=== PATIENT | male | born 1940 | race Caucasian/White ===

== ENCOUNTER → 2017-02-20 | Outpatient (CLI) | payer OTHER ==
[~2017-02-20] MED LIST: AMLO2.5T PO; ASPI81TA82 PO; COZA100T PO; HYDR-3533 PO; PRAV80 PO; PROT40TA PO; TRAM100T19 PO
--- NOTE | 2017-02-26 08:18 | RSPPFT ---
DATE OF PROCEDURE: 02/20/17 COMMENTS: VOLUMES DYNAMIC: FVC and FEV1 normal. STATIC: TLC, RV and FRC normal. FLOWS: FEV1% and FEF 25-75 normal. DIFFUSION: Normal. FLOW VOLUME LOOP: Normal configuration. IMPRESSION: Normal pulmonary functions.
== END ==
LOC: PHRSP 08:47
PROVIDERS: ATTEND Internal Medicine
DX: R05 Cough (principal); J44.9 Chronic obstructive pulmonary disease, unspecified
CPT/HCPCS: 94060; 94620; 94726; 94729

== ENCOUNTER 2017-07-06 16:50 | Observation (INO) | payer OTHER ==
[~2017-07-06] VITALS: Ht 170.2 cm; Wt 73.0 kg
[2017-07-06 16:56] VITALS: BP 188/80; PULSE 56; RESP 17; TEMP 97.5
[2017-07-06] MEDS ORDERED: SODIUM CHLOR 0.9% 1000 ML INJ 1,000 ML IV ONE (16:58)
[2017-07-06 17:10] LABS: AUTOMATED NEUTROPHIL # 4.6 TH/MM3 (1.8-7.7); BASOPHIL # 0.1 TH/MM3 (0-0.2); BASOPHIL % 1.8 % (0.0-2.0); EOSINOPHIL # 0.3 TH/MM3 (0-0.4); EOSINOPHIL % 3.7 % (0.0-4.0); HEMATOCRIT 40.1 % (39.0-51.0); HEMO FLAGS DIFF FINAL; LYMPH % 29.1 % (9.0-44.0); LYMPHOCYTE # 2.3 TH/MM3 (1.0-4.8); MEAN CELL VOLUME 90.5 FL (80.0-100.0); MEAN CORPUSCULAR HEMOGLOBIN 30.6 PG (27.0-34.0); MEAN CORPUSCULAR HGB CONC 33.8 % (32.0-36.0); NEUT % 59.4 % (16.0-70.0); PLATELET COUNT 324 TH/MM3 (150-450); RED BLOOD COUNT 4.43 MIL/MM3 (4.50-5.90); WHITE BLOOD COUNT 7.8 TH/MM3 (4.0-11.0)
--- NOTE | 2017-07-06 17:11 | PD ---
HPI Chief Complaint: Neuro Symptoms/ Deficits Time Seen by Provider: 16:58 Travel History International Travel<30 days: No Contact w/Intl Traveler<30days: No Traveled to known affect area: No History of Present Illness HPI 77-year-old male presents with at 9:30 AM while he was playing tennis feeling unsteady. He states his noticed that his speech was off as well. He states he is not having any memory changes, weakness, numbness or other concurrent complaints. His states that she noticed he was walking unsteady and his speech was slurred when they went for a walk and so she brought him here to be evaluated. Patient states he feels worse when he tries to move around. He denies other modifying factors. He denies prior history of strokes. He states he takes a baby aspirin. PFSH Past Medical History Autoimmune Disease: No Blood Disorders: No Heart Rhythm Problems: No Cancer: No Cardiovascular Problems: Yes (HTN) High Cholesterol: Yes Chest Pain: Yes Congestive Heart Failure: No Diminished Hearing: No Endocrine: No Gastrointestinal Disorders: Yes (TURNER'S ESOPHAGUS) GERD: Yes Genitourinary: No Hepatitis: No Hiatal Hernia: Yes Hypertension: Yes Immune Disorder: No Implanted Vascular Access Dvce: No Musculoskeletal: No Neurologic: Yes Psychiatric: No Reproductive: No Respiratory: Yes (LUNG MASS) Myocardial Infarction: No Ulcer: No Past Surgical History AICD: No Appendectomy: Yes Cardiac Surgery: Yes (HEART CATH X 3) Ear Surgery: No Endocrine Surgery: No Eye Surgery: No Genitourinary Surgery: No Gynecologic Surgery: No Neurologic Surgery: No Oral Surgery: No Pacemaker: No Thoracic Surgery: No Other Surgery: Yes (left lower lobe resection secondary to cancer) Social History Alcohol Use: No Tobacco Use: No Substance Use: No Allergies-Medications (Allergen,Severity, Reaction): Coded Allergies: No Known Allergies (Unverified , 07/06/17) Reported Meds & Prescriptions Reported Meds & Active Scripts Active Reported D3 Maximum Strength (Cholecalciferol) 5,000 Unit Cap 1,000 Units PO DAILY Aspirin 81 Mg Chew 81 Mg CHEW DAILY Pantoprazole (Pantoprazole Sodium) 40 Mg Tab 40 Mg PO DAILY Pravastatin 80 Mg Tab 80 Mg PO DAILY Losartan (Losartan Potassium) 50 Mg Tab 50 Mg PO BID Amlodipine (Amlodipine Besylate) 2.5 Mg Tab 2.5 Mg PO BID Review of Systems Except as stated in HPI: all other systems reviewed are Neg Physical Exam Narrative GENERAL: Well-nourished, well-developed patient. SKIN: Warm and dry. HEAD: Normocephalic and atraumatic. EYES: No injection or drainage. ENT: No nasal drainage noted. NECK: Supple, trachea midline. CARDIOVASCULAR: Regular rate and rhythm RESPIRATORY: Breath sounds equal bilaterally. No accessory muscle use. GASTROINTESTINAL: Abdomen soft, non-tender, nondistended. EXTREMITIES: No edema.. NEUROLOGICAL: Awake and alert. Motor and sensory grossly within normal limits. Mild slurred speech noted, 5 out of 5 in all 4 extremities, mild lower facial droop noted, equal grasp bilaterally Data Data Last Documented VS Vital Signs Date Time Temp Pulse Resp B/P (MAP) Pulse Ox O2 Delivery O2 Flow Rate FiO2 07/06/17 17:41 58 17 161/73 (102) 97 Room Air 07/06/17 16:56 97.5 Orders Orders Nursing Bedside Swallow Assess .ONCE (07/06/17 16:58) Activity Bed Rest (07/06/17 16:58) Diet Npo (07/06/17 Dinner) Prothrombin Time / Inr (Pt) (07/06/17 16:58) Act Partial Throm Time (Ptt) (07/06/17 16:58) Complete Blood Count With Diff (07/06/17 16:58) Basic Metabolic Panel (Bmp) (07/06/17 16:58) Fibrinogen (07/06/17 16:58) Creatine Kinase (Cpk) (07/06/17 16:58) Troponin I (07/06/17 16:58) Ua Includes Microscopic (07/06/17 16:58) Type And Screen (07/06/17 16:58) Ct Brain W/O Iv Contrast(Rout) (07/06/17 ) Chest, Single Ap (07/06/17 ) Electrocardiogram (07/06/17 ) Sodium Chlor 0.9% 1000 Ml Inj (Ns 1000 M (07/06/17 16:58) Blood Glucose (07/06/17 16:58) Ecg Monitoring (07/06/17 16:58) Iv Access Insert/Monitor (07/06/17 16:58) NPO (07/06/17 16:58) Oximetry (07/06/17 16:58) Aspirin (Aspirin) (07/06/17 18:00) Admit Order (Ed Use Only) (07/06/17 17:54) Place In Observation (07/06/17 ) Code Status (07/06/17 17:54) Vital Signs (Adult) Q2HX12,Q4H (07/06/17 17:54) Nih Stroke Scale - Nihss .Daily (07/06/17 17:54) Neuro Checks Q2HX12,Q4H (07/06/17 17:54) Notify Dr: Other (07/06/17 17:54) Remove Urinary Catheter .ONCE (07/06/17 17:54) Case Management Consult (07/06/17 ) Activity Oob Ad Ingrid (07/06/17 17:54) Nursing Bedside Swallow Assess .ONCE (07/06/17 17:54) Scd Bilateral/Knee High MEG.QSHIFT (07/06/17 17:54) Hemoglobin (Hgb) A1c (07/06/17 17:54) Lipid Profile (07/07/17 06:00) Us Carotid Arteries Comp Bilat (07/06/17 ) Mra Brain W/O Contrast (Cow) (07/06/17 ) Mri Brain W/O Contrast (07/06/17 ) Echo 2d Comp With Doppler (07/06/17 ) ^ Hold Medication (07/06/17 17:54) Sodium Chloride 0.9% Flush (Ns Flush) (07/06/17 21:00) Sodium Chloride 0.9% Flush (Ns Flush) (07/06/17 18:00) Bedside Glucose MEG.CSUGAR (07/06/17 17:54) Analytical Data Scientist / Telemetry MEG.Q8H (07/06/17 17:54) Consult Stroke Navigator (07/06/17 ) Enoxaparin Inj (Lovenox Inj) (07/06/17 18:00) Nursing Bedside Swallow Assess .ONCE (07/06/17 17:54) Labs Laboratory Tests Test 07/06/17 17:00 07/06/17 17:36 White Blood Count 7.8 TH/MM3 Red Blood Count 4.43 MIL/MM3 Hemoglobin 13.5 GM/DL Hematocrit 40.1 % Mean Corpuscular Volume 90.5 FL Mean Corpuscular Hemoglobin 30.6 PG Mean Corpuscular Hemoglobin Concent 33.8 % Red Cell Distribution Width 12.0 % Platelet Count 324 TH/MM3 Mean Platelet Volume 6.7 FL Neutrophils (%) (Auto) 59.4 % Lymphocytes (%) (Auto) 29.1 % Monocytes (%) (Auto) 6.0 % Eosinophils (%) (Auto) 3.7 % Basophils (%) (Auto) 1.8 % Neutrophils # (Auto) 4.6 TH/MM3 Lymphocytes # (Auto) 2.3 TH/MM3 Monocytes # (Auto) 0.5 TH/MM3 Eosinophils # (Auto) 0.3 TH/MM3 Basophils # (Auto) 0.1 TH/MM3 CBC Comment DIFF FINAL Differential Comment Prothrombin Time 10.9 SEC Prothromb Time International Ratio 1.0 RATIO Activated Partial Thromboplast Time 28.5 SEC Blood Urea Nitrogen 14 MG/DL Creatinine 1.00 MG/DL Random Glucose 113 MG/DL Calcium Level 8.2 MG/DL Sodium Level 141 MEQ/L Potassium Level 4.1 MEQ/L Chloride Level 109 MEQ/L Carbon Dioxide Level 22.9 MEQ/L Anion Gap 9 MEQ/L Estimat Glomerular Filtration Rate 72 ML/MIN Total Creatine Kinase 205 U/L Troponin I LESS THAN 0.02 NG/ML Urine pH 7.0 Urine Protein NEG mg/dL Urine Glucose (UA) NEG mg/dL Urine Ketones NEG mg/dL Urine Occult Blood NEG Urine Nitrite NEG Urine Bilirubin NEG Urine Leukocyte Esterase NEG MDM Medical Decision Making Medical Screen Exam Complete: Yes Emergency Medical Condition: Yes Medical Record Reviewed: Yes (past history confirmed) Interpretation(s) CBC & BMP Diagram 07/06/17 17:00 Calcium Level 8.2 L Last [address] 07/06/17 0000 Signed Impressions: Service Date/Time: Thursday, July 06, 2017 17:11 - CONCLUSION: Normal examination. Moody Lacy MD Chest X-Ray 07/06/17 0000 Signed Impressions: Service Date/Time: Thursday, July 06, 2017 17:30 - CONCLUSION: 1. Minimal basilar atelectasis. Tortuous aorta. Moody Lacy MD EKG shows NSR, no ST elevation or depression, and no arrhythmias. No significant T-wave inversions. Differential Diagnosis Stroke, bleed, mass, TIA Narrative Course Will check blood work, CT brain and monitor Patient updated, dose with aspirin. Patient agrees to admission. Lengthy discussion with patient and about results Physician Communication Physician Communication dr corbett agrees to admit Diagnosis Primary Impression: Unstable gait Additional Impression: Slurred speech Admitting Information Admitting Physician Requests: Observation Mya De Dios MD Jul 06, 2017 17:11
[2017-07-06 17:26] LABS: APTT (PATIENT) 28.5 SEC (24.3-30.1); PROTHROMBIN TIME - PATIENT 10.9 SEC (9.8-11.6)
--- NOTE | 2017-07-06 17:34 | RADRPT ---
EXAM DATE/TIME: 07/06/2017 17:11 [facility] COMPARISON: No previous studies available for comparison. INDICATIONS : Slurred speech. RADIATION DOSE: 60.39 CTDIvol (mGy) MEDICAL HISTORY : Hypertension. Cardiovascular disease Gastroesophageal reflux disease.Lung mass, SURGICAL HISTORY : Appendectomy. Heart cath. ENCOUNTER: Initial ACUITY: 1 day PAIN SCALE: 0/10 LOCATION: cranial TECHNIQUE: Multiple contiguous axial images were obtained of the head. Using automated exposure control and adj ustment of the mA and/or kV according to patient size, radiation dose was kept as low as reasonably a chievable to obtain optimal diagnostic quality images. DICOM format image data is available electro nically for review and comparison. FINDINGS: CEREBRUM: The ventricles are normal for age. No evidence of midline shift, mass lesion, hemorrhage or acute in farction. No extra-axial fluid collections are seen. POSTERIOR FOSSA: The cerebellum and brainstem are intact. The 4th ventricle is midline. The cerebellopontine angle i s unremarkable. EXTRACRANIAL: The visualized portion of the orbits is intact. SKULL: The calvaria is intact. No evidence of skull fracture. CONCLUSION: Normal examination. Moody Lacy MD on July 06, 2017 at 17:28 Board Certified Radiologist. This report was verified electronically.
[2017-07-06] MEDS ORDERED: PRAV80TA2 PO (17:40)
[2017-07-06] MEDS ORDERED: CHOL1CAP14 PO (17:40)
[2017-07-06] MEDS ORDERED: AMLO2.5T PO (17:40)
[2017-07-06] MEDS ORDERED: LOSA50TA PO (17:40)
[2017-07-06] MEDS ORDERED: PANT40TA3 PO (17:40)
[2017-07-06] MEDS ORDERED: ASPI81CH CHEW (17:40)
[2017-07-06 17:41] VITALS: BP 161/73; PULSE 58; RESP 17; O2SAT 97
[2017-07-06 17:44] LABS: CHLORIDE 109 MEQ/L (98-107); SODIUM (NA) 141 MEQ/L (136-145)
[2017-07-06 17:48] LABS: ANION GAP 9 MEQ/L (5-15); BICARBONATE 22.9 MEQ/L (21.0-32.0); BLOOD UREA NITROGEN 14 MG/DL (7-18)
[2017-07-06 17:50] LABS: POTASSIUM 4.1 MEQ/L (3.5-5.1)
[2017-07-06 17:52] LABS: GLOMERULAR FILTRATION RATE 72 ML/MIN (>89)
[2017-07-06 17:55] LABS: CREATINE KINASE 205 U/L (39-308)
[2017-07-06] MEDS ORDERED: SODIUM CHLORIDE 0.9% FLUSH 5 ML FLUSH IV FLUSH PRN (18:00)
[2017-07-06] MEDS ORDERED: ASPIRIN 325 MG TAB PO ONE (18:00)
--- NOTE | 2017-07-06 18:03 | RADRPT ---
EXAM DATE/TIME: 07/06/2017 17:30 [facility] COMPARISON: No previous studies available for comparison. INDICATIONS : Palpitations. MEDICAL HISTORY : Hypertension. Cardiovascular disease. Gastroesophageal reflux disease. SURGICAL HISTORY : Appendectomy. Left lower lobe removal. Heart cath. ENCOUNTER: Initial ACUITY: 1 day PAIN SCORE: 0/10 LOCATION: Bilateral chest FINDINGS: A single view of the chest demonstrates minimal basilar atelectasis. No consolidation or effusion. To rtuous aorta. Heart size mildly enlarged. No pneumothorax. CONCLUSION: 1. Minimal basilar atelectasis. Tortuous aorta. Moody Lacy MD on July 06, 2017 at 17:59 Board Certified Radiologist. This report was verified electronically.
[2017-07-06 18:07] LABS: BLOOD, URINE NEG (NEG); GLUCOSE,URINE NEG (NEG); KETONE, URINE NEG (NEG); NITRITE,URINE NEG (NEG)
[2017-07-06 18:22] LABS: URINE COLOR STRAW (YELLW/STRAW)
[2017-07-06 18:23] LABS: SQUAMOUS EPITHELIAL CELL URINE 0-1 /hpf (0-5)
[2017-07-06] MEDS: ENOXAPARIN SODIUM 40 MG/0.4 ML SYRINGE SQ SCH (18:34)
[2017-07-06 19:00] VITALS: BP 169/76
--- NOTE | 2017-07-06 19:13 | HHI.HP ---
[facility] Service [facility] Primary Care Physician José Luis Carmona MD Admission Diagnosis slurred speech, unsteady gait Diagnoses: Chief Complaint: Poor balance and slurred speech Travel History International Travel<30 Days: No Contact w/Intl Traveler <30 Da: No Traveled to Known Affected Are: No History of Present Illness This patient is an extremely healthy 77-year-old male who plays tennis several times a week and rides 10 miles on his bicycle. He was playing tennis today and noted that he felt overwhelmingly weak and fatigued. He tried to ride his bike home but veered off of the sidewalk to the left into the grass. He may actually make it back home and took a nap however when he woke up his realized he wasn't feeling well. He was having trouble walking. He said the left side of his body was weak and his right face appeared to have a droop. This happened about 9:00 in the morning and by the time they came to the emergency room at 5:00 patient was outside the window of stroke alert. He did have symptoms which seem to have resolved somewhat in fact his says that his speech and facial asymmetries appears to have resolved. He notes no pain complaint. He's never had a stroke. He does have a history of coronary disease and takes a statin as well as a baby aspirin a day. Patient's been admitted to the hospital for further evaluation of TIA symptoms. Review of Systems Constitutional: DENIES: Diaphoretic episodes, Fatigue, Fever, Weight gain, Weight loss, Chills, Dizziness, Change in appetite, Night Sweats Endocrine: DENIES: Heat/cold intolerance, Polydipsia, Polyuria, Polyphagia Eyes: DENIES: Blurred vision, Diplopia, Eye inflammation, Eye pain, Vision loss , Photosensitivity, Double Vision Ears, nose, mouth, throat: DENIES: Tinnitus, Hearing loss, Vertigo, Nasal discharge, Oral lesions, Throat pain, Hoarseness, Ear Pain, Running Nose, Epistaxis, Sinus Pain, Toothache, Odynophagia Respiratory: DENIES: Apneas, Cough, Snoring, Wheezing, Hemoptysis, Sputum production, Shortness of breath Cardiovascular: DENIES: Chest pain, Palpitations, Syncope, Dyspnea on Exertion , PND, Lower Extremity Edema, Orthopnea, Claudication Gastrointestinal: DENIES: Abdominal pain, Black stools, Bloody stools, Constipation, Diarrhea, Nausea, Vomiting, Difficulty Swallowing, Anorexia Genitourinary: DENIES: Sexual dysfunction, Urinary frequency, Urinary incontinence, Urgency, Hematuria, Dysuria, Nocturia, Penile Discharge, Testicular Pain, Testicular Swelling Musculoskeletal: DENIES: Joint pain, Muscle aches, Stiffness, Joint Swelling, Back pain, Neck pain Integumentary: DENIES: Abnormal pigmentation, Nail changes, Pruritus, Rash Hematologic/lymphatic: DENIES: Bruising, Lymphadenopathy Immunologic/allergic: DENIES: Eczema, Urticaria Neurologic: COMPLAINS OF: Localized weakness, Speech Problems, Poor Balance, DENIES: Abnormal gait, Headache, Paresthesias, Seizures, Tremor Except as stated in HPI: all other systems reviewed are Neg Past Family Social History Past Medical History Lung cancer Hypertension Coronary artery disease Past Surgical History hiatal hernia Appendectomy Knee surgery Reported Medications reviewed in the EMR, no new medicines Allergies: Coded Allergies: No Known Allergies (Unverified , 07/06/17) Active Ordered Medications Reviewed in the EMR Family History Mother had dementia, father at 62 of a heart attack Social History No tobacco or alcohol dependency, lives with his Physical Exam Vital Signs Vital Signs Date Time Temp Pulse Resp B/P (MAP) Pulse Ox O2 Delivery O2 Flow Rate FiO2 07/06/17 17:41 58 17 161/73 (102) 97 Room Air 07/06/17 16:56 97.5 56 17 188/80 (116) Physical Exam GENERAL: This is a well-nourished, well-developed patient, in no apparent distress. SKIN: No rashes, ecchymoses or lesions. Cool and dry. HEAD: Atraumatic. Normocephalic. No temporal or scalp tenderness. EYES: Pupils equal round and reactive. Extraocular motions intact. No scleral icterus. No injection or drainage. ENT: Nose without bleeding, purulent drainage or septal hematoma. Throat without erythema, tonsillar hypertrophy or exudate. Uvula midline. Airway patent. NECK: Trachea midline. No JVD or lymphadenopathy. Supple, nontender, no meningeal signs. CARDIOVASCULAR: Regular rate and rhythm without murmurs, gallops, or rubs. RESPIRATORY: Clear to auscultation. Breath sounds equal bilaterally. No wheezes , rales, or rhonchi. GASTROINTESTINAL: Abdomen soft, non-tender, nondistended. No hepato-splenomegaly , or palpable masses. No guarding. MUSCULOSKELETAL: Extremities without clubbing, cyanosis, or edema. No joint tenderness, effusion, or edema noted. No calf tenderness. Negative Homans sign bilaterally. NEUROLOGICAL: Awake and alert. Cranial nerves II through XII intact. Motor and sensory grossly within normal limits. Five out of 5 muscle strength in all muscle groups. Normal speech. Laboratory Laboratory Tests Test 07/06/17 17:00 07/06/17 17:36 White Blood Count 7.8 Red Blood Count 4.43 Hemoglobin 13.5 Hematocrit 40.1 Mean Corpuscular Volume 90.5 Mean Corpuscular Hemoglobin 30.6 Mean Corpuscular Hemoglobin Concent 33.8 Red Cell Distribution Width 12.0 Platelet Count 324 Mean Platelet Volume 6.7 Neutrophils (%) (Auto) 59.4 Lymphocytes (%) (Auto) 29.1 Monocytes (%) (Auto) 6.0 Eosinophils (%) (Auto) 3.7 Basophils (%) (Auto) 1.8 Neutrophils # (Auto) 4.6 Lymphocytes # (Auto) 2.3 Monocytes # (Auto) 0.5 Eosinophils # (Auto) 0.3 Basophils # (Auto) 0.1 CBC Comment DIFF FINAL Differential Comment Prothrombin Time 10.9 Prothromb Time International Ratio 1.0 Activated Partial Thromboplast Time 28.5 Fibrinogen 357 Blood Urea Nitrogen 14 Creatinine 1.00 Random Glucose 113 Calcium Level 8.2 Sodium Level 141 Potassium Level 4.1 Chloride Level 109 Carbon Dioxide Level 22.9 Anion Gap 9 Estimat Glomerular Filtration Rate 72 Total Creatine Kinase 205 Troponin I LESS THAN 0.02 Urine Color STRAW Urine Turbidity CLEAR Urine pH 7.0 Urine Specific [place] 1.013 Urine Protein NEG Urine Glucose (UA) NEG Urine Ketones NEG Urine Occult Blood NEG Urine Nitrite NEG Urine Bilirubin NEG Urine Leukocyte Esterase NEG Urine Squamous Epithelial Cells 0-1 Microscopic Urinalysis Comment Result Diagram: 07/06/17 1700 07/06/17 1700 Imaging Last Impressions Head CT 07/06/17 0000 Signed Impressions: Service Date/Time: Saturday, July 06, 2017 17:11 - CONCLUSION: Normal examination. Moody Lacy MD Chest X-Ray 07/06/17 0000 Signed Impressions: Service Date/Time: Thursday, July 06, 2017 17:30 - CONCLUSION: 1. Minimal basilar atelectasis. Tortuous aorta. MD John Friedman VTE Risk Assessment John VTE Risk Assessment: Mod/High Risk (score >= 2) Caprini Risk Assessment Model Point Value = 1 Point Value = 2 Point Value = 3 Point Value = 5 Age 41-60 Minor surgery BMI > 25 kg/m2 Swollen legs Varicose veins or History of unexplained or recurrent spontaneous Oral contraceptives or hormone replacement Sepsis (< 1 month) Serious lung disease, including pneumonia (< 1 month) Abnormal pulmonary function Acute myocardial infarction Congestive heart failure (< 1 month) History of inflammatory bowel disease Medical patient at bed rest Age 61-74 Arthroscopic surgery Major open surgery (> 45 min) Laparoscopic surgery (> 45 min) Malignancy Confined to bed (> 72 hours) Immobilizing plaster cast Central venous access Age >= 75 History of VTE Family history of VTE Factor V Leiden Prothrombin [id number] Lupus anticoagulant Anticardiolipin antibodies Elevated serum homocysteine Heparin-induced thrombocytopenia Other congenital or acquired thrombophilia Stroke (< 1 month) Elective arthroplasty Hip, pelvis, or leg fracture Acute spinal cord injury (< 1 month) Prophylaxis Regimen Total Risk Factor Score Risk Level Prophylaxis Regimen 0-1 Low Early ambulation 2 Moderate Order ONE of the following: *Sequential Compression Device (SCD) *Heparin 5000 units SQ BID 3-4 Higher Order ONE of the following medications: *Heparin 5000 units SQ TID *Enoxaparin/Lovenox 40 mg SQ daily (WT < 150 kg, CrCl > 30 mL/min) *Enoxaparin/Lovenox 30 mg SQ daily (WT < 150 kg, CrCl > 10-29 mL/min) *Enoxaparin/Lovenox 30 mg SQ BID (WT < 150 kg, CrCl > 30 mL/min) AND/OR *Sequential Compression Device (SCD) 5 or more Highest Order ONE of the following medications: *Heparin 5000 units SQ TID (Preferred with Epidurals) *Enoxaparin/Lovenox 40 mg SQ daily (WT < 150 kg, CrCl > 30 mL/min) *Enoxaparin/Lovenox 30 mg SQ daily (WT < 150 kg, CrCl > 10-29 mL/min) *Enoxaparin/Lovenox 30 mg SQ BID (WT < 150 kg, CrCl > 30 mL/min) AND *Sequential Compression Device (SCD) Assessment and Plan Problem List: (1) TIA (transient ischemic attack) ICD Code: G45.9 - Transient cerebral ischemic attack, unspecified Plan: Workup in progress, follow up MRI/MRA and continue with aspirin and statin Rehabilitation eval pending Advance diet as nursing swallow screen passed Symptoms are improving (2) CAD (coronary artery disease) ICD Code: I25.10 - Atherosclerotic heart disease of [place] coronary artery without angina pectoris Plan: Continue current medications Assessment and Plan plan of care to be determined by Hospital course Code Status Full code Discussed Condition With Patient, spouse, ER Janiya Ritter MD Jul 06, 2017 19:12
[2017-07-06] MEDS ORDERED: PILL SPLITTER OTHER PRN (20:00)
[2017-07-06 20:15] VITALS: PULSE 57
[2017-07-06 21:01] VITALS: BP 206/78; PULSE 54; RESP 18; TEMP 98.4; O2SAT 95
[2017-07-06] MEDS: amLODIPine BESYLATE 5 MG TAB PO SCH (21:19)
[2017-07-06] MEDS: LOSARTAN 50 MG TAB PO SCH (21:19)
[2017-07-06] MEDS: SODIUM CHLORIDE 0.9% FLUSH 5 ML FLUSH IV FLUSH SCH (21:19)
[2017-07-06 22:00] VITALS: BP 139/65; PULSE 53; RESP 16
[2017-07-07] VITALS (10 sets, daily range): BP systolic 113–165; BP diastolic 52–74; PULSE 50–99; RESP 16–20; TEMP 96.1–98.6; O2SAT 95–99
--- NOTE | 2017-07-07 08:54 | HHI.PR ---
Subjective Remarks Patient seen and evaluated in follow-up for neurological symptoms which have apparently resolved. MRI/a and carotid ultrasound, echo pending Care plan discussed with patient Objective Vitals Vital Signs Date Time Temp Pulse Resp B/P (MAP) Pulse Ox O2 Delivery O2 Flow Rate FiO2 07/07/17 06:00 54 18 140/59 (86) 98 07/07/17 04:00 54 20 140/59 (86) 95 07/07/17 02:00 54 18 125/72 (89) 98 07/07/17 00:00 98.6 50 16 113/60 (77) 97 07/06/17 22:00 53 16 139/65 (89) 07/06/17 21:01 98.4 54 18 206/78 (120) 95 07/06/17 20:15 57 07/06/17 19:53 07/06/17 19:23 54 Room Air 07/06/17 19:00 169/76 (107) 07/06/17 17:41 58 17 161/73 (102) 97 Room Air 07/06/17 16:56 97.5 56 17 188/80 (116) I/O 07/06/17 07/06/17 07/06/17 07/07/17 07/07/17 07/07/17 07:00 15:00 23:00 07:00 15:00 23:00 Intake Total 240 ml 712 ml Output Total 350 ml 650 ml Balance -110 ml 62 ml Intake Oral 240 ml IV Total 712 ml Output Urine Total 350 ml 650 ml # Voids 1 # Bowel Movements 0 Result Diagram: 07/06/17 1700 07/06/17 1700 Imaging Last Impressions Head CT 07/06/17 0000 Signed Impressions: Service Date/Time: Thursday, July 06, 2017 17:11 - CONCLUSION: Normal examination. Moody Lacy MD Chest X-Ray 07/06/17 0000 Signed Impressions: Service Date/Time: Thursday, July 06, 2017 17:30 - CONCLUSION: 1. Minimal basilar atelectasis. Tortuous aorta. Moody Lacy MD Objective Remarks GENERAL: This is a well-nourished, well-developed patient, in no apparent distress. CARDIOVASCULAR: Regular rate and rhythm without murmurs, gallops, or rubs. RESPIRATORY: Clear to auscultation. Breath sounds equal bilaterally. No wheezes , rales, or rhonchi. GASTROINTESTINAL: Abdomen soft, non-tender, nondistended. Normal active bowel sounds MUSCULOSKELETAL: Extremities without clubbing, cyanosis, or edema. NEURO: Alert & Oriented x4 to person, place, time, situation. Moves all ext x4 A/P Problem List: (1) TIA (transient ischemic attack) ICD Code: G45.9 - Transient cerebral ischemic attack, unspecified Plan: Workup in progress, follow up MRI/MRA and continue with aspirin and statin Rehabilitation eval pending Symptoms are improving (2) CAD (coronary artery disease) ICD Code: I25.10 - Atherosclerotic heart disease of [place] coronary artery without angina pectoris Plan: Continue current medications (3) Bradycardia ICD Code: R00.1 - Bradycardia, unspecified Plan: avoid BB Telemetry Janiya Herrera MD Jul 07, 2017 08:54
[2017-07-07] MEDS ORDERED: ATORVASTATIN 40 MG TAB PO SCH ×2 (09:00→21:00)
[2017-07-07] MEDS: SODIUM CHLORIDE 0.9% FLUSH 5 ML FLUSH IV FLUSH SCH (09:00)
[2017-07-07] MEDS ORDERED: ASPIRIN 325 MG TAB PO SCH (09:00)
[2017-07-07] MEDS ORDERED: PANTOPRAZOLE SOD 40 MG DELAYED RELEASE TAB PO SCH (09:00)
[2017-07-07] MEDS: LOSARTAN 50 MG TAB PO SCH (09:53)
[2017-07-07] MEDS: amLODIPine BESYLATE 5 MG TAB PO SCH (09:53)
[2017-07-07] MEDS ORDERED: LORazepam 2 MG/ML VIAL IV PUSH ONE (10:00)
--- NOTE | 2017-07-07 13:15 | RADRPT ---
EXAM DATE/TIME: 07/07/2017 12:24 [facility] COMPARISON: MRI BRAIN W/O CONTRAST, July 07, 2017, 12:24. INDICATIONS : Weakness, unsteady gait. MEDICAL HISTORY : Hypertension. Cardiovascular disease SURGICAL HISTORY : Total knee replacement, left. Total knee replacement, right. ENCOUNTER: Initial ACUITY: 1 day PAIN SCORE: 0/10 LOCATION: cranial Please note a normal MRA of the brain does not entirely exclude the possibility of a small aneurysm, nor the possibility of distal intracranial vessel disease. TECHNIQUE: 3D time of flight MRA was performed. Source images, multiplanar STS MIP, and 3D volume MIP reconstru ctions were reviewed. FINDINGS: There is excellent visualization of the major intracranial arteries out to the second-order branch ve ssels. There is no evidence for aneurysm, vessel truncation or stenosis, and no evidence for vascula r malformation. CONCLUSION: Normal examination. Rusty Ram MD on July 07, 2017 at 13:11 Board Certified Radiologist. This report was verified electronically.
--- NOTE | 2017-07-07 13:18 | RADRPT ---
EXAM DATE/TIME: 07/07/2017 12:24 [facility] COMPARISON: CT BRAIN W/O CONTRAST, July 06, 2017, 17:11. INDICATIONS : Weakness, unsteady gait. MEDICAL HISTORY : Hypertension. Cardiovascular disease SURGICAL HISTORY : Total knee replacement, left. Total knee replacement, right. Appendectomy. ENCOUNTER: Initial ACUITY: 1 day PAIN SCORE: 0/10 LOCATION: cranial TECHNIQUE: Multiplanar, multisequence MRI of the brain was performed without contrast. FINDINGS: CEREBRUM: There is a small focal areas signal abnormality in the anterior medial right basal ganglia likely rel ated to a lacunar infarct. This does demonstrate some increased activity on the flair images suggesti ng this is subacute. The ventricles are normal for age. No evidence of midline shift, mass lesion, o r hemorrhage. No extraaxial fluid collections are seen. The pituitary gland and suprasellar cistern are normal in configuration. WHITE MATTER: There are areas of increased signal seen throughout the periventricular white matter. POSTERIOR FOSSA: The cerebellum and brainstem are intact. The 4th ventricle is midline. The cerebellopontine angle is unremarkable. The cerebellar tonsils are normal in position. EXTRACRANIAL: The visualized portions of the orbits and paranasal sinuses are unremarkable. CONCLUSION: 1. Suspected small subacute lacunar infarct at the right basal ganglia. 2. Demyelination in the periventricular white matter likely from small vessel ischemic change. Rusty Ram MD on July 07, 2017 at 13:13 Board Certified Radiologist. This report was verified electronically.
--- NOTE | 2017-07-07 13:34 | EKG ---
Date Performed: 07/06/2017 Time Performed: 17:22:27 PTAGE: 77 years EKG: Sinus rhythm WITH FIRST DEGREE AV BLOCK ABNORMAL ECG PREVIOUS TRACING : 05/21/2009 11.17 DOCTOR: Bandar Samuel Interpretating Date/Time 07/07/2017 13:33:36
--- NOTE | 2017-07-07 14:47 | RADRPT ---
EXAM DATE/TIME: 07/07/2017 13:52 [facility] COMPARISON: No previous studies available for comparison. INDICATIONS : Cerebrovascular accident. MEDICAL HISTORY : Hypertension. Gastroesophageal reflux disease. Hernia, hiatal. Parvez's esophagus. carcinoma, lung . SURGICAL HISTORY : Appendectomy. Total knee replacement, left. Total knee replacement, right. Carcinoma removal, lung. ENCOUNTER: Initial ACUITY: 1 day PAIN SCORE: 0/10 LOCATION: Bilateral neck PEAK SYSTOLIC VELOCITIES (cm/sec): ICA/CCA RATIO: Right: 1.2 Left: 1.5 ICA: Right: 102.0 Left: 136.3 CCA: Right: 87.1 Left: 93.5 ECA: Right: 174.2 Left: 166.4 VERTEBRAL: Left: 106.2 antegrade Elevated flow velocities and ICA/CCA ratios have been found to correlate with increased degrees of vessel stenosis, calculated as percentage of diameter relative to a normal segment of distal ICA/CCA FINDINGS: RIGHT CAROTID: Scattered calcified plaque throughout the common carotid and proximal ICA. No significant stenosis is visualized. The waveforms are within normal limits. LEFT CAROTID: Scattered calcified plaque throughout the common carotid and proximal ICA. Less than 50% narrowing by grayscale analysis involving the ICA origin. VERTEBRAL ARTERIES: Unable to identify the right vertebral artery. Antegrade flow within the left. MISCELLANEOUS: None. CONCLUSION: 1. Diffuse scattered calcified atherosclerotic plaque with a less than 50% stenosis of the left ICA. No appreciable stenosis on the right. 2. Lack of visualization of the right vertebral artery. Antegrade flow involving the left vertebral a rtery. Daryn Nunes Jr., MD on July 07, 2017 at 14:44 Board Certified Radiologist. This report was verified electronically.
--- NOTE | 2017-07-07 16:01 | ECHRPT ---
Indication: CVA/TIA CONCLUSIONS The left ventricular systolic function is normal with an estimated ejection fraction in the range of 55-60%. Wall thickness is normal, Non-obstructive prominent basal hypertrophy is present consistent with sig moid septum. Normal left ventricular size. Mild mitral valve regurgitation. Trace aortic valve regurgitation. BP: 140 / 59 HR: 54 Rhythm: Sinus MEASUREMENTS (Male / Female) Normal Values Technical Quality:Good 2D ECHO LV Diastolic Diameter PLAX 4.6 cm 4.2 - 5.9 / 3.9 - 5.3 cm LV Systolic Diameter PLAX 3.5 cm IVS Diastolic Thickness 1.1 cm 0.6 - 1.0 / 0.6 - 0.9 cm LVPW Diastolic Thickness 1.1 cm 0.6 - 1.0 / 0.6 - 0.9 cm LV Relative Wall Thickness 0.5 LVOT Diameter 2.3 cm M-MODE Aortic Root Diameter MM 3.5 cm LA Systolic Diameter MM 4.3 cm LA Ao Ratio MM 1.2 AV Cusp Separation MM 1.8 cm DOPPLER AV Peak Velocity 157.5 cm/s AV Peak Gradient 9.9 mmHg AV Mean Gradient 6.0 mmHg AV Velocity Time Integral 36.5 cm AI Peak Velocity 407.0 cm/s AI Peak Gradient 66.3 mmHg AI Pressure Half Time 669.0 ms LVOT Peak Velocity 109.0 cm/s LVOT Peak Gradient 4.8 mmHg AV Area Cont Eq pk 2.9 cm MR Peak Velocity 492.0 cm/s MR Peak Gradient 96.8 mmHg Mitral E Point Velocity 65.6 cm/s Mitral A Point Velocity 46.4 cm/s Mitral E to A Ratio 1.4 LV E' Lateral Velocity 9.5 cm/s Mitral E to LV E' Lateral Ratio 6.9 LV E' Septal Velocity 6.2 cm/s Mitral E to LV E' Septal Ratio 10.5 PV Peak Velocity 102.0 cm/s PV Peak Gradient 4.2 mmHg FINDINGS LEFT VENTRICLE The left ventricular systolic function is normal with an estimated ejection fraction in the range of 55-60%. Nonobstructive prominent basal hypertrophy is present consistent with sigmoid septum. Normal left ventricular size. RIGHT VENTRICLE Normal right ventricular size and systolic function. LEFT ATRIUM The left atrial size is normal. RIGHT ATRIUM The right atrial size is normal. ATRIAL SEPTUM Normal atrial septal thickness without atrial level shunting by limited color doppler interrogation. AORTA The aortic root and proximal ascending aorta are normal in size on limited imaging. MITRAL VALVE Mild mitral valve regurgitation. AORTIC VALVE Trace aortic valve regurgitation. TRICUSPID VALVE Structurally normal tricuspid valve. No tricuspid valve stenosis or regurgitation. PULMONARY VALVE The pulmonary valve is not well visualized. VESSELS The inferior vena cava is normal in size. PERICARDIUM No pericardial effusion. Daniel Beard MD (Electronically Signed) Final Date:07 July 2017 16:00
[2017-07-07 16:33] LABS: HDL CHOLESTEROL 57.9 MG/DL (40.0-60.0)
[2017-07-07] MEDS: ENOXAPARIN SODIUM 40 MG/0.4 ML SYRINGE SQ SCH (17:32)
[2017-07-07] MEDS ORDERED: ATOR40TA16 PO (19:08)
[2017-07-07] MEDS ORDERED: ASPI325T PO (19:08)
--- NOTE | 2017-07-07 19:10 | HHI.DCPOC ---
Discharge Care Plan Diagnosis: (1) CVA (cerebral vascular accident) Additional Problems obtain holter monitor Goals to Promote Your Health * To prevent worsening of your condition and complications * To maintain your health at the optimal level Directions to Meet Your Goals Take your medications as prescribed Follow your dietary instruction Follow activity as directed Keep your appointments as scheduled Take your immunizations and boosters as scheduled If your symptoms worsen call your PCP, if no PCP go to Urgent Care Center or Emergency Room Smoking is Dangerous to Your Health. Avoid second hand smoke Call the 24-hour hour crisis hotline for domestic abuse at Janiya Herrera MD Jul 07, 2017 19:10
--- NOTE | 2017-07-08 06:10 | MB ---
cc: TRISTIAN BENITES DATE OF CONSULTATION 07/07/2017 REASON FOR CONSULTATION Stroke. HISTORY OF PRESENT ILLNESS Mr. Kern is a 77-year-old male with no significant past medical history. He keeps himself quite healthy by playing tennis several times a week and rides 10 miles on his bicycle. Noted that he felt overwhelmingly weak and fatigued with mild slurring of speech and left-sided weakness. His realized that he was not feeling well and he was having trouble walking and speaking. He reported to the hospital at [facility] outside the therapeutic window of IV t-PA. He was admitted for stroke workup. His blood pressure was 140/59, heart rate was 54. Head CT scan without contrast was reported as normal. Admitted for completion of stroke workup. REVIEW OF SYSTEMS A 12-point review of systems is negative except for what is stated in the HPI. PAST MEDICAL HISTORY 1. Lung cancer. 2. Hypertension. 3. Coronary artery disease. PAST SURGICAL HISTORY 1. Hiatal hernia. 2. Appendectomy. 3. Knee surgery. MEDICATIONS Reviewed in the EMR. 1. Aspirin 81 mg. 1. Pantoprazole. 2. Pravastatin. 3. Losartan. 4. Amlodipine. ALLERGIES No known allergies. FAMILY HISTORY Mother - dementia. Father - heart attack. SOCIAL HISTORY No tobacco, alcohol or drugs. PHYSICAL EXAMINATION GENERAL: Awake, alert, good historian, pleasant. Not in any acute distress HEENT: Atraumatic, normocephalic. Intact hearing, intact vision. NECK: Supple. Trachea in the midline. No carotid bruit. No signs of meningeal irritation. CARDIOVASCULAR: Regular rate and rhythm. Bradycardic. RESPIRATORY: Clear to auscultation. No wheezes. GASTROINTESTINAL: Abdomen soft, nontender. MUSCULOSKELETAL: No clubbing, no cyanosis. NEUROLOGICAL: Awake, alert, oriented to time, person and place. No dysarthria , no dysphasia. Cranial nerves II-XII are grossly intact. There is mild dysarthria and no dysphasia. Cranial nerve exam II through XII is grossly intact. Motor and sensory examination - 5/5 bilateral, symmetrical upper and lower extremities. Normal tone. No abnormal movements. Sensation is intact bilateral and symmetrical. [id number], [id number] is intact. Intact gait. Negative Romberg sign. Normal tandem gait. PSYCHIATRIC: Cooperative, calm, no hallucinations. DIAGNOSTIC STUDIES LABORATORY DATA White blood cells 12.8, hemoglobin 13.5, platelet count 324. INR 1. BUN 14, creatinine one, calcium 8.2, sodium 141, potassium 4.1, anion gap 9. DIAGNOSTICS IMAGING - Head CT scan without contrast reported with no acute intracranial abnormality. - Brain MRI without contrast revealed suspected small subacute lacunar infarct on the right basal ganglia. Demyelination in the periventricular white matter likely from small vessel ischemic changes. - Carotid ultrasound revealed diffuse scattered calcified atherosclerotic plaque with less than 50% stenosis of the left ICA. No appreciable stenosis of the right. Lack of visualization of right vertebral artery. Antegrade flow in the left vertebral artery. - Head MRA revealed excellent visualization of the major intracranial arteries out to the second-order branch vessels. No evidence of aneurysm, vessel truncation or stenosis and no evidence of vascular malformation. DIAGNOSTIC IMPRESSION 1. Right basal ganglia lacunar infarct. 2. Hypertension. 3. Bradycardia. 4. Carotid stenosis with no visualization of right vertebral artery by carotid ultrasound criteria. PLAN 1. Increase aspirin from 81 mg to 162 mg. 2. Statin. 3. Follow-up with cardiology for bradycardia evaluation and possible Holter monitoring to capture episodes of possible sick sinus syndrome or tachy- grisel syndrome. 4. Follow-up with Neurology as an outpatient. May perform a CTA neck or MRA neck that are more sensitive than carotid ultrasound to verify the condition of the extracranial circulation. 5. Tight control of the blood pressure. 6. The patient is cleared from the neurology standpoint. 7. Please call for questions. MD JOHN Kirkland/GENESIS /11:24 PM /5:49 AM ALISON
[2017-07-08 16:16] LABS: HEMOGLOBIN A1a 1.4 %; HEMOGLOBIN A1b 0.9 %; HEMOGLOBIN Ao 84.9 %; HEMOGLOBIN LA1C 1.4 %; HEMOGLOBIN P3 3.6 %
--- NOTE | 2017-07-10 07:04 | HM ---
Date Performed: 07/07/2017 Time Performed: 19:45:00 HOOKUP DATE: 07/07/17 07:45:00 PM Sun ANALYSIS START TIME: 07/07/2017 7:50:00 PM ANALYSIS END TIME: 07/08/2017 7:30:20 PM PATIENT AGE: 77 PATIENT HEIGHT PATIENT WEIGHT: 160 DRUG LIST PATIENT DIAGNOSIS: tia TEST NARRATIVE: The patient's average heart rate was 58 BPM. No episodes of tachycardia wer e noted. Heart rates less than 50 BPM were noted 33% of the time. 16 pauses exceeding 2.0 secon ds were noted. The longest pause of 2.1 seconds occurred at 04:44:13 AM Mon. 17 ventricular ectop ics, which represented < 1% of the total beat count, were noted. The highest ventricular ectopic ad quency occurred from 07:00 PM to 08:00 PM Sun. During this time 2 VE(s) occurred. Ventricular ectop ics were observed as 17 isolated beat(s) only. No couplets or runs were noted. 683 supraventricu lar ectopics, which represented 1% of the total beat count, were noted. The highest supraventricular ectopic frequency occurred from 01:00 PM to 02:00 PM Mon. During this time 87 SVE(s) occurred. No episodes of ST depression (defined as -1.0 mm or more) were noted in channel 1. No episodes of ST depression (defined as -1.0 mm or more) were noted in channel 2. No episodes of ST depression (defi laurie as -1.0 mm or more) were noted in channel 3. NO DIARY GIVEN TO PATIENT TEST INTERPRETATION: The patient was monitored for 23 hours and 40 minutes. The patient was in n ormal Sinus rhythm . There were periods of sinus bradycardia to 43 beats per minute. There were periods of sinus tachyca rdia to 103 beats per minute. There are 17 PVCs and 660 PACs. Signed by : Holger Camarillo
== END 2017-07-07 20:50 | disposition home or self-care (01) ==
LOC: PHED 16:50 → PHEDA 17:59 → PH3B 19:57
PROVIDERS: ADMIT Hospitalist; ATTEND Hospitalist
DX: I65.29 Occlusion and stenosis of unspecified carotid artery (principal); R00.1 Bradycardia, unspecified; I10 Essential (primary) hypertension; I25.10 Atherosclerotic heart disease of native coronary artery without angina pectoris; J98.11 Atelectasis; E78.00 Pure hypercholesterolemia, unspecified; K21.9 Gastro-esophageal reflux disease without esophagitis; Z85.118 Personal history of other malignant neoplasm of bronchus and lung; Z96.653 Presence of artificial knee joint, bilateral
CPT/HCPCS: 70450; 70544; 70551; 71010; 80048; 80061; 81001; 82550; 82948; 83036; 84484; 85025; 85384; 85610; 85730; 86850; 86900; 86901; 93005; 93225; 93226; 93306; 93880; 96361; 96372; 96374; 99285; G0378; J1650; J2060; J7030

== ENCOUNTER 2017-11-02 10:23 | Emergency (ER) | payer OTHER ==
[~2017-11-02] VITALS: Ht 170.2 cm; Wt 77.2 kg
[~2017-11-02 10:23] MED LIST changes: +ASPI-183 PO; -ASPI81TA82 PO; +ATOR40TA16 PO; -COZA100T PO; +D 50CAP2 PO; -HYDR-3533 PO; +LOSA50TA PO; +PANT40TA3 PO; -PRAV80 PO; -PROT40TA PO; -TRAM100T19 PO
[2017-11-02 10:32] VITALS: BP 213/93; PULSE 62; RESP 16; TEMP 97.3; O2SAT 97
[2017-11-02] MEDS ORDERED: ASPI-516 CHEW (10:46)
[2017-11-02] MEDS ORDERED: cloNIDine HCL 0.2 MG TAB PO ONE (11:00)
--- NOTE | 2017-11-02 11:19 | PD ---
HPI Chief Complaint: Hypertension Time Seen by Provider: 10:56 Travel History International Travel<30 days: No Contact w/Intl Traveler<30days: No Traveled to known affect area: No History of Present Illness HPI This patient complains of high blood pressure. He has chronic hypertension and takes 2 medications which he reports compliance with. He tracks his pressures at home. Usually around 1:30 systolic. Today was over 200. Upon arrival he is a blood pressure 200/70. He is not having headache or chest pain or neurologic complaint. Duration 2 hours. No alleviating factors. No exacerbating factors PFSH Past Medical History Hx Anticoagulant Therapy: Yes (asa 162mg) Autoimmune Disease: No Blood Disorders: No Heart Rhythm Problems: No Cancer: Yes (Lung CA removed) Cardiovascular Problems: Yes (htn on meds) High Cholesterol: No Chemotherapy: No Chest Pain: Yes Congestive Heart Failure: No Cerebrovascular Accident: Yes (tia) Diabetes: No Patient Takes Glucophage: No Diminished Hearing: Yes (Hearing aids) Endocrine: No Gastrointestinal Disorders: Yes (TURNER'S ESOPHAGUS) GERD: Yes (Barrets Esophagus) Genitourinary: No Hepatitis: No Hiatal Hernia: Yes Hypertension: Yes Immune Disorder: No Implanted Vascular Access Dvce: No Musculoskeletal: No Neurologic: Yes Psychiatric: No Reproductive: No Respiratory: Yes (LUNG MASS) Myocardial Infarction: No Radiation Therapy: No Thyroid Disease: No Ulcer: No Tetanus Vaccination: < 5 Years Past Surgical History Abdominal Surgery: Yes (APPENDECTOMY) AICD: No Appendectomy: Yes Cardiac Surgery: Yes (HEART CATH X 3) Ear Surgery: No Endocrine Surgery: No Eye Surgery: No Genitourinary Surgery: No Gynecologic Surgery: No Neurologic Surgery: No Oral Surgery: No Pacemaker: No Thoracic Surgery: No Other Surgery: Yes (left lower lobe resection secondary to cancer) Social History Alcohol Use: No Tobacco Use: No Substance Use: No Allergies-Medications (Allergen,Severity, Reaction): Coded Allergies: No Known Allergies (Unverified Adverse Reaction, Unknown, 11/02/17) Reported Meds & Prescriptions Reported Meds & Active Scripts Active Atorvastatin (Atorvastatin Calcium) 40 Mg Tab 40 Mg PO HS Reported Aspirin 81 Mg Chew 162 Mg CHEW DAILY D3 Maximum Strength (Cholecalciferol) 5,000 Unit Cap 1,000 Units PO DAILY Pantoprazole (Pantoprazole Sodium) 40 Mg Tab 40 Mg PO DAILY Losartan (Losartan Potassium) 50 Mg Tab 50 Mg PO BID Amlodipine (Amlodipine Besylate) 2.5 Mg Tab 2.5 Mg PO BID Review of Systems General / Constitutional: No: Fever Eyes: No: Visual changes HENT: No: Headaches Cardiovascular: No: Chest Pain or Discomfort Respiratory: No: Shortness of Breath Gastrointestinal: No: Abdominal Pain Genitourinary: No: Dysuria Musculoskeletal: No: Pain Skin: No Rash Neurologic: No: Weakness Psychiatric: No: Depression Endocrine: No: Polydipsia Hematologic/Lymphatic: No: Easy Bruising Physical Exam Narrative GENERAL: Well-nourished, well-developed patient in no apparent distress. SKIN: Focused skin assessment reveals no rash and nodules. Skin is Warm and dry. HEAD: Atraumatic. Normocephalic. EYES: Pupils equal and round. No scleral icterus. No injection or drainage. ENT: No nasal bleeding or discharge. Mucous membranes pink and moist. NECK: Trachea midline. No JVD. CARDIOVASCULAR: Regular rate and rhythm. No murmur appreciated. RESPIRATORY: No accessory muscle use. Clear to auscultation. Breath sounds equal bilaterally. GASTROINTESTINAL: Abdomen soft, non-tender, nondistended. Hepatic and splenic margins not palpable. MUSCULOSKELETAL: No obvious deformities. No clubbing. No cyanosis. No edema. NEUROLOGICAL: Awake and alert. No obvious cranial nerve deficits. Motor grossly within normal limits. Normal speech. PSYCHIATRIC: Appropriate mood and affect; insight and judgment normal. Data Data Last Documented VS Vital Signs Date Time Temp Pulse Resp B/P (MAP) Pulse Ox O2 Delivery O2 Flow Rate FiO2 11/02/17 12:28 118/59 (78) 11/02/17 12:05 53 16 96 Room Air 11/02/17 10:32 97.3 Orders Orders Clonidine (Catapres) (11/02/17 11:00) [facility] Medical Decision Making Medical Screen Exam Complete: Yes Emergency Medical Condition: Yes Medical Record Reviewed: Yes Differential Diagnosis Accelerated hypertension, hypertensive urgency, essential hypertension Narrative Course I have reviewed the patient's electronic medical record. Patient is neurologically intact I gave him a dose of clonidine and will reassess Recheck blood pressure is 120/60 Diagnosis Primary Impression: Accelerated hypertension Additional Instructions: The patient was advised to follow up with their physician and return if they worsen. Check and record blood pressure daily Med/Other Pt SpecificInfo: Other Disposition: 01 DISCHARGE HOME Condition: Stable Unurly Morrison MD Nov 02, 2017 11:19
[2017-11-02 12:05] VITALS: BP 128/62; PULSE 53; RESP 16; O2SAT 96
[2017-11-02 12:28] VITALS: BP 118/59
[2017-11-02 13:45] VITALS: BP 149/71
== END 2017-11-02 13:47 | disposition home or self-care (01) ==
LOC: PHED 10:23
DX: I10 Essential (primary) hypertension (principal); Z79.82 Long term (current) use of aspirin
CPT/HCPCS: 99282